=== PATIENT | female | born 1960 | race Asian ===

== ENCOUNTER 2017-01-04 12:57 | Outpatient (CLI) | payer BC ==
--- NOTE | 2017-01-04 15:37 | XRay Report ---
Chest 2 views. History: Cough. Findings: The heart and pulmonary vessels are normal. The lungs are clear. Minimal apical pleural scarring is present bilaterally. There is no pleural fluid. Impression: No acute findings.
== END 2017-01-04 12:58 | disposition home or self-care (01) ==
LOC: SPVIMAG 12:57
PROVIDERS: ATTEND Internal Medicine
DX: J98.4 Other disorders of lung (principal); R05 Cough
CPT/HCPCS: 71020

== ENCOUNTER 2018-08-29 12:07 | Emergency (ER) | payer BC, OTHER ==
[2018-08-29 12:16] VITALS: BP 121/77
--- NOTE | 2018-08-29 12:18 | Emergency Department Report ---
Blank Doc - Documentation Documentation: This is a 58-year-old female that presents with right hip pain and lower back pain. Stated was heavy lifting and felt a pulling sensation. Denies any trauma. This initial assessment/diagnostic orders/clinical plan/treatment(s) is/are subject to change based on patient's health status, clinical progression and re- assessment by fellow clinical providers in the ED. Further treatment and workup at subsequent clinical providers discretion. Patient/guardians urged not to [place] pe from the ED as their condition may be serious if not clinically assessed and managed. Initial orders include: 1- Patient sent to [facility] for further evaluation and treatment 2- xray of hip
--- NOTE | 2018-08-29 12:44 | Emergency Department Report ---
ED Back Pain/Injury HPI - General Chief Complaint: Back Pain/Injury Stated Complaint: LOWER BACK PAIN/RT HIP/LEG PAIN Time Seen by Provider: 08/29/18 12:16 Source: patient, EMS Limitations: No Limitations - History of Present Illness Initial Comments: Patient is a 58-year-old female presents to the complaining of right sided buttock pain radiating down her buttock. Patient also states she feels that her right hip area. She denies fall or trauma or injuries. Patient states that she was lifting some heavy with her brother when she felt like she sprained or strained muscle or joint right side radiating down to her thighs. She denies fever, chills, nausea vomiting, abdominal pain, dysuria, bowel or urine incontinence. - Related Data Previous Rx's Medication Instructions Recorded Last Taken Type Cyclobenzaprine [Flexeril] 10 mg PO QHS PRN #20 tablet 08/29/18 Unknown Rx Meloxicam [Mobic] 7.5 mg PO DAILY #30 tablet 08/29/18 Unknown Rx Allergies Allergy/AdvReac Type Severity Reaction Status Date / Time No Known Allergies Allergy Unverified 02/03/14 09:32 ED Review of Systems ROS: Stated complaint: LOWER BACK PAIN/RT HIP/LEG PAIN Other details as noted in HPI Comment: All other systems reviewed and negative ED Past Medical Hx - Past Medical History Previous Medical History?: No - Surgical History Past Surgical History?: Yes Additional Surgical History: Right foot surgery - Social History Smoking Status: Current Every Day Smoker Substance Use Type: Alcohol - Medications Home Medications: Home Medications Medication Instructions Recorded Confirmed Last Taken Type Cyclobenzaprine [Flexeril] 10 mg PO QHS PRN #20 tablet 08/29/18 Unknown Rx Meloxicam [Mobic] 7.5 mg PO DAILY #30 tablet 08/29/18 Unknown Rx ED Physical Exam - General Limitations: No Limitations General appearance: alert, in no apparent distress - Head Head exam: Present: atraumatic, normocephalic - Eye Eye exam: Present: normal appearance - ENT ENT exam: Present: mucous membranes moist - Neck Neck exam: Present: normal inspection - Respiratory Respiratory exam: Present: normal lung sounds bilaterally. Absent: respiratory distress - Cardiovascular Cardiovascular Exam: Present: regular rate, normal rhythm. Absent: systolic murmur, diastolic murmur, rubs, gallop - GI/Abdominal GI/Abdominal exam: Present: soft, normal bowel sounds - Extremities Exam Extremities exam: Present: normal inspection, full ROM - Back Exam Back exam: Present: normal inspection, full ROM, tenderness (to palpation of the right buttock area), other (right straight leg leg positive). Absent: CVA tenderness (R), CVA tenderness (L) - Neurological Exam Neurological exam: Present: alert, oriented X3, normal gait - Psychiatric Psychiatric exam: Present: normal affect, normal mood - Skin Skin exam: Present: warm, dry, intact, normal color. Absent: rash ED Course Vital Signs 08/29/18 08/29/18 12:15 13:45 Temperature 98.7 F Pulse Rate 84 Respiratory 16 18 Rate Blood Pressure 121/77 O2 Sat by Pulse 96 Oximetry ED Medical Decision Making - Radiology Data Radiology results: report reviewed, image reviewed RIGHT HIP, 2 views: History: Pain. Borderline bone mineralization. The right femoral head is slightly sclerotic which could be related to degenerative change or avascular necrosis. There is no evidence for fracture or femoral head collapse. The pelvis is grossly intact. 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 Transcribed By: TTR Dictated By: HA TALLEY JR, MD Electronically Authenticated By: HA TALLEY JR, MD Signed Date/Time: 08/29/18 1246 - Medical Decision Making 58-year-old female presents to ED with lumbar radiculopathy/sciatica of the right side ED course: Patient received Toradol and prednisone in ED. Vital signs are normal patient is in no acute distress Discussed with patient follow-up with primary care physician. Discussed the patient and take medications as prescribed. Patient has no neurological deficit. Patient is alert and oriented 3 and understands all instructions given. Discussed drowsiness effect of Flexeril makes her drowsy and not to operate machinery while taking flexeril Critical care attestation.: If time is entered above; I have spent that time in minutes in the direct care of this critically ill patient, excluding procedure time. ED Disposition Clinical Impression: Strain of muscle, fascia and tendon of lower back, initial encounter, Lumbar radiculopathy Disposition: [id number] TO HOME OR SELFCARE Is pt being admited?: No Does the pt Need Aspirin: No Condition: Stable Instructions: Muscle Strain (ED), Osteoarthritis (ED), Lumbar Radiculopathy (ED) Additional Instructions: Make sure to follow up with the primary care physician as discussed. Take all your medications as you've been prescribed. If you have any worsening symptoms or develop new symptoms please return to ED immediately. Prescriptions: Cyclobenzaprine [Flexeril] 10 mg PO QHS PRN #20 tablet PRN Reason: Muscle Spasm Meloxicam [Mobic] 7.5 mg PO DAILY #30 tablet Referrals: LINA LAL MD [Primary Care Provider] - 3-5 Days HOME MERRITT MD [Staff Physician] - 3-5 Days Forms: Work/School Release Form(ED) Time of Disposition: 12:48
[2018-08-29] MEDS ORDERED: TORADOL IM ONE (12:49)
[2018-08-29] MEDS ORDERED: DELTASONE PO ONE (12:49)
--- NOTE | 2018-08-29 12:50 | XRay Report ---
RIGHT HIP, 2 views: History: Pain. Borderline bone mineralization. The right femoral head is slightly sclerotic which could be related to degenerative change or avascular necrosis. There is no evidence for fracture or femoral head collapse. The pelvis is grossly intact. 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
== END 2018-08-29 13:04 | disposition home or self-care (01) ==
LOC: ED 12:07
DX: S39.012A Strain of muscle, fascia and tendon of lower back, initial encounter (principal); M54.16 Radiculopathy, lumbar region; F17.200 Nicotine dependence, unspecified, uncomplicated; X50.0XXA Overexertion from strenuous movement or load, initial encounter; Y93.89 Activity, other specified; Y92.89 Other specified places as the place of occurrence of the external cause; Y99.8 Other external cause status
CPT/HCPCS: 73502; 96372; 99284; J1885; J7512